=== PATIENT | male | born 1995 | race Two or more races ===

== ENCOUNTER 2025-05-06 16:07 | Emergency (ER) | payer OTHER ==
[~2025-05-06] VITALS: Ht 180.3 cm; Wt 89.4 kg
[2025-05-06] MEDS ORDERED: PROAIR RESPICL90 MCG IH (17:02)
[2025-05-06] MEDS ORDERED: KETOROLAC TROMETHAMINE 30 MG VIAL IM ONE (17:45)
[2025-05-06] MEDS ORDERED: DEXAMETHASONE SODIUM PHOSPHATE 4 MG/ML VIAL IM ONE (17:45)
[2025-05-06 18:25] LABS: BASO % 0.5 % (0.1-1.2); EOS # 0.09 (0.04-0.54); EOS % 0.7 % (0.7-7.0); LYMPH # 0.89 (1.18-3.74); LYMPH % 6.8 % (19.3-53.1); MEAN PLATELET VOLUME 8.90 fl (9.4-12.4); MONO # 0.68 (0.24-0.82); MONO % 5.2 % (4.7-12.5); NEUT # 11.36 (1.56-6.13); NEUT % 86.5 % (34.0-71.1); RED CELL DISTRIBUTION WIDTH 12.1 % (11.6-14.4)
[2025-05-06 18:42] LABS: COVID-19 AG NEGATIVE (NEGATIVE)
== END 2025-05-06 21:58 | disposition home or self-care (01) ==
LOC: ER 16:08
PROVIDERS: General Practice
DX: J02.8 Acute pharyngitis due to other specified organisms (principal); Z20.822 Contact with and (suspected) exposure to COVID-19; Z88.8 Allergy status to other drugs, medicaments and biological substances